=== PATIENT | female | born 1970 | race Caucasian/White ===

== ENCOUNTER → 2020-06-18 | Outpatient (CLI) | payer BC ==
[~2020-06-18] MED LIST: ADVIL200 M1 PO; ALLEGRA ALLERG180 MG PO; LO LOESTRIN FE1 EACH PO; MULTI VITAMIN1 EACH PO; TYLENOL325 M1 PO; ZYRTEC10 M2 PO
== END ==
LOC: LAB 09:00
PROVIDERS: ATTEND Orthopaedic Surgery Sports Medicine
DX: Z01.812 Encounter for preprocedural laboratory examination (principal); Z20.822 Contact with and (suspected) exposure to COVID-19

== ENCOUNTER → 2020-06-23 | Day surgery (SDC) | payer BC ==
[~2020-06-23] VITALS: Ht 170.2 cm; Wt 63.0 kg
[2020-06-23 12:02] VITALS: BP 115/68
[2020-06-23 16:05] VITALS: BP 115/68
--- NOTE | 2020-06-24 10:25 | O ---
[address] [address] OPERATIVE REPORT Name: LASHONDA BARROSO Room #: REG [facility]..#: [id number] Admission: 06/23/20 Attend Phys: Jose Guadalupe Rivera MD Discharge: Date of : 72 Report #: [id number] THIS REPORT FOR: cc: Kamila Lee MD, Sharon R. MD McCabe,Jose Guadalupe Nash MD ~ DATE OF SERVICE: 06/23/2020 SERVICE: Orthopedics. FACILITY: [facility]. SURGEON: Jose Guadalupe Rivera MD MEDICAID COLLECTION SPECIALIST: Jennifer Zheng NP. INDICATION FOR MEDICAID COLLECTION SPECIALIST: Extremity positioning, suture management, arthroscope management, assistance with repair. PREOPERATIVE DIAGNOSES: 1. Left hip pain. 2. Left hip femoroacetabular impingement. 3. Left hip labral tear. POSTOPERATIVE DIAGNOSES: 1. Left hip pain. 2. Left hip femoroacetabular impingement. 3. Left hip labral tear. PROCEDURES: 1. Left hip arthroscopic labral repair. 2. Left hip arthroscopic Cam osteochondroplasty. 3. Left hip arthroscopic subspine decompression. COMPLICATIONS: None. DRAINS: None. SPECIMENS: None. ANESTHESIA: General with regional. FINDINGS: 1. Anterior labral tear with partial detachment. 2. Labral repair with Hakan CinchLock suture anchor x 3. [address] [address] OPERATIVE REPORT Name: LASHONDA BARROSO Room #: REG [facility] René#: [id number] Admission: 06/23/20 Attend Phys: Jose Guadalupe Rivrea MD Discharge: Date of : 72 Report #: [id number] 3. Intact cartilage. 4. Significant subspine impingement lesion requiring additional soft tissue dissection and bony work to perform the decompression. 5. 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 HISTORY: The patient with a history of persistent progressive left hip pain that had failed conservative measures. She was indicated for surgical treatment after failing conservative measures to include rest, activity modifications, physical therapy, oral medicine modalities. She had positive pain response with intra-articular injection. She had imaging consistent with femoroacetabular impingement and had a labral tear on her MRI. The x-rays showed an alpha angle approximately 57 degrees. After failing conservative treatment, she wished to move forward with definitive surgical treatment. Risks, benefits, alternatives and indications for surgery were discussed with her. Risks include but not limited to pain, bleeding, infection, injury to nerves or blood vessels, persistent pain despite surgical intervention, failure of any repairs, progression of preexisting chondral injury, stiffness, need for further surgery as well as complications related to anesthesia. Despite the risks, she wished to proceed. PROCEDURE IN DETAIL: After the left lower extremity was correctly identified as the operative extremity, the patient underwent regional nerve block. She was taken to the operating room where general anesthesia was induced without complications. She was padded appropriately. Prophylactic antibiotics were administered at appropriate time. C-arm was brought in to identify the extent of the Cam deformity of the femoral head and neck junction and then the left hip was prepped and draped in standard sterile fashion. Timeout procedure performed. Traction was applied to the left leg and then a standard anterolateral viewing portal was established under fluoroscopic visualization. An anteromedial portal was established under fluoroscopic and arthroscopic visualization and then the transverse capsulotomy was performed. She has some yellowing of the labrum, but otherwise the labrum appeared to be very healthy. There was no fraying and no degeneration grossly. The labrum did have some traditional fraying at the chondral labral junction at the side of the labral tear pathology and the labrum was hanging down very slightly into the joint consistent with detachment type of labral tear, which is common in this patient population. The capsule was reflected off the dorsal side of the labrum allowing access to the subspine region. There was a very dense prominent anterior-inferior iliac spine causing extraarticular subspine impingement. This ran directly up to the acetabular rim and the labrum. In addition, there was osteophytic process that had developed on the anterolateral aspect of the acetabulum and this bone was overgrowing the top side of the labrum. This was not an arthritic appearing process as there was no articular cartilage damage and the hip otherwise looked quite healthy. There appeared to be more of a [facility] [address] [place] [address] OPERATIVE REPORT Name: LASHONDA BARROSO Room #: REG [facility] M.R.#: [id number] Admission: 06/23/20 Attend Phys: Jose Guadalupe Rivera MD Discharge: Date of : 72 Report #: [id number] secondary changes related to impingement phenomenon. The bur was used to perform the electrocautery and shaver was used to dissect the capsule around the base of the anterior-inferior iliac spine and then the bur was used to perform an extraarticular subspine decompression in standard fashion. After this was completed, I used the bur to gently resect the bone growth that was extending over the top of the labrum more peripherally. After this was completed, I gently decorticate the acetabular rim to create a fresh bleeding surface for labral repair and then a total of 3 Hakan CinchLock suture anchors were used to reduce and repair the labrum and compression against the acetabular rim was then probed and found to be stable. Shaver was then used to perform a limited debridement on the fraying tissue at the chondral labral junction at this point. Traction was let down and suction seal was restored. The hip was flexed up. Attention was turned towards the peripheral compartment. Based on the location of the Cam deformity, I was able to access it all through the transverse capsulotomy and so a T-shaped capsulotomy was not required. The bur was used to perform a Cam osteoplasty in a typical fashion. I removed the instruments, brought the C-arm in, assessed the resection, identified some additional bone over the more proximal aspect of the femur that needed to be resected. Instruments were then placed back into the hip. The Cam osteoplasty was completed, the bony debris was lavaged out of the hip and then I removed the instruments, brought C-arm in again and reassessed. At this point, I was happy with the appearance of the Cam osteoplasty. I placed the instruments back in the hip, completed the debridement, took final photographs and then the transverse capsulotomy was closed with a total of four #2 Vicryl sutures. Instruments were removed. Portal sites were closed. Sterile dressing was applied. The patient was awakened from anesthesia and taken to recovery room in stable condition. No complications. All counts were correct. <ELECTRONICALLY SIGNED> By: Jose Guadalupe Rivera MD 06/24/20 1025 [id number] Jose Guadalupe Rivera MD /nt
== END | disposition home or self-care (01) ==
LOC: OR 10:16
PROVIDERS: ATTEND Orthopaedic Surgery Sports Medicine
DX: M25.552 Pain in left hip (principal); S73.192A Other sprain of left hip, initial encounter; M25.852 Other specified joint disorders, left hip; Z98.890 Other specified postprocedural states; Z85.828 Personal history of other malignant neoplasm of skin; Z79.899 Other long term (current) drug therapy; X58.XXXA Exposure to other specified factors, initial encounter; Y93.89 Activity, other specified; Y92.89 Other specified places as the place of occurrence of the external cause; Y99.8 Other external cause status
CPT/HCPCS: 50010; 50101; 50386; 51320; 51538; 52001; 52282; 52304; 52313; 56524; 56527; 57092; 57103; 62110; 62900; 64039; 70005